=== PATIENT | female | born 1980 | race Caucasian/White ===

== ENCOUNTER → 2023-10-29 | Outpatient (CLI) | payer OTHER ==
[2023-10-29 20:44] LABS: Bacterial Vaginosis PCR Negative (NEGATIVE); Candida Group, PCR NOT DETECTED (NOT DETECT); Candida glabrata-krusei, PCR NOT DETECTED (NOT DETECT)
[2023-10-31 13:29] LABS: APTIMA MEDIA TYPE Unisex Swab; C. TRACHOMATIS BY TMA Negative (Negative); N. GONORRHOEAE BY TMA Negative (Negative); SPECIMEN SOURCE Vaginal
== END | disposition home or self-care (01) ==
LOC: LAB 13:38 → LAB SHORT 13:38
PROVIDERS: Advanced Practice Midwife
DX: Z11.3 Encounter for screening for infections with a predominantly sexual mode of transmission (principal); N39.0 Urinary tract infection, site not specified; N76.0 Acute vaginitis
CPT/HCPCS: 87086; 87481; 87491; 87591; 87661; 87801

== ENCOUNTER 2024-09-13 04:19 | Observation (INO) | payer OTHER ==
[2024-09-13] VITALS (14 sets, daily range): BP systolic 111–130; BP diastolic 65–83
[~2024-09-13] VITALS: Ht 167.6 cm; Wt 82.0 kg
[2024-09-13 08:57] LABS: BASOPHILS ABSOLUTE AUTO 0.04 K/mm3 (0.00-0.23); BASOPHILS PERCENT AUTO 1 % (0-2); EOSINOPHILS ABSOLUTE AUTO 0.07 K/mm3 (0.00-0.68); EOSINOPHILS PERCENT AUTO 1 % (0-6); Hematocrit 39.6 % (33.0-51.0); Hemoglobin 13.3 g/dL (11.5-16.0); IMMATURE GRAN ABSOLUTE AUTO 0.02 K/mm3 (0.00-0.10); IMMATURE GRAN PERCENT AUTO 0 % (0-1); LYMPHOCYTES ABSOLUTE AUTO 2.52 K/mm3 (0.84-5.20); LYMPHOCYTES PERCENT AUTO 28 % (21-46); MONOCYTES ABSOLUTE AUTO 0.42 K/mm3 (0.16-1.47); MONOCYTES PERCENT AUTO 5 % (4-13); Mean Corpuscular HGB 31.7 pg (26.0-34.0); Mean Corpuscular HGB Conc 33.6 g/dL (31.5-36.5); Mean Corpuscular Volume 94 fL (80-100); Mean Platelet Volume 9.4 fL (9.1-12.4); NEUTROPHILS ABSOLUTE AUTO 5.79 K/mm3 (1.96-9.15); NEUTROPHILS PERCENT AUTO 65 % (41-73); Platelet Count 357 K/mm3 (150-400); RDW Coefficient Variation 12.3 % (11.7-14.2); RDW Standard Deviation 42.5 fL (35.1-46.3); White Blood Cell Count 8.86 K/mm3 (4.00-11.30)
[2024-09-13 09:15] LABS: Source, Urine Clean Catch
[2024-09-13 09:23] LABS: Albumin, Blood 3.5 g/dL (3.4-5.0); Albumin/Globulin Ratio 0.8 (0.8-1.8); Bilirubin, Total 0.2 mg/dL (0.1-1.0); Bun/Creatinine Ratio 22.8 (12.0-20.0); Creatinine, Blood 0.57 mg/dL (0.40-1.00); Globulin, Blood 4.6 g/dL (2.2-4.0); Potassium, Blood 4.6 mmol/L (3.5-5.5); Total Protein, Blood 8.1 g/dL (6.4-8.2)
[2024-09-13 09:31] LABS: Appearance, Urine Clear (Clear); Bilirubin, Urine Neg (Neg); Blood, Urine Neg (Neg); Color, Urine Yellow (P-Yellow); Glucose Qualitative, Urine Neg (Neg); Ketones, Urine Neg (Neg); Leukocyte Esterase, Urine Neg (Neg); Nitrite, Urine Neg (Neg); Protein, Urine Neg (Neg); Urobilinogen, Urine NORM (Normal)
[2024-09-13] MEDS ORDERED: FentaNYL Citrate 50 MCG/ML 2 ML Injection IV ONE (11:35)
[2024-09-13] MEDS ORDERED: Ketorolac Tromethamine 30mg Vial IV ONE (11:40)
[2024-09-13] MEDS ORDERED: MetroNIDAZOLE 500MG/NS 100 ml 100 ML IV ONE (11:50)
[2024-09-13] MEDS ORDERED: Ciprofloxacin 400MG/D5 200ML 200 ML IV ONE (11:50)
[2024-09-13] MEDS ORDERED: HYDROmorphone HCl/Pf 1MG SYR IV PRN (12:15)
[2024-09-13] MEDS ORDERED: FLU VACC TS2024-25(6MOS UP)/PF 45 MCG/0.5 ML SYRINGE IM SCH (12:15)
[2024-09-13] MEDS ORDERED: Metoclopramide HCl 5MG / ML 2ML Vial IV PRN (12:20)
[2024-09-13] MEDS ORDERED: Lactated Ringer's 1,000 ML IV SCH (12:20)
[2024-09-13] MEDS ORDERED: OxyCODONE HCL 5 MG TAB PO PRN (12:20)
[2024-09-13] MEDS ORDERED: Ondansetron HCl 2 MG / ML 2ML Vial IV PRN (12:20)
[2024-09-13] MEDS ORDERED: Ondansetron HCl 2 MG / ML 2ML Vial ONE (12:50)
[2024-09-13] MEDS ORDERED: Rocuronium Bromide 10 MG/ML 5ML Injection IV ONE (12:50)
[2024-09-13] MEDS ORDERED: propofoL 20 ML IV ONE (12:50)
[2024-09-13] MEDS ORDERED: Dexamethasone Sod Phos 10 MG/ML 1ML VIAL ONE (12:50)
[2024-09-13] MEDS ORDERED: FentaNYL Citrate 50 MCG/ML 2 ML Injection ONE ×2 (12:51→15:19)
[2024-09-13] MEDS ORDERED: Bupivacaine 0.5% HCl 5 MG/ML 30MLVIAL ONE (13:09)
--- NOTE | 2024-09-13 14:04 | NUR ---
09/13/24 1404 Gabby Chino PT ON SCHEDULED ANTIBIOTICS
[2024-09-13] MEDS ORDERED: Sugammadex Sodium 200 MG/2ML SDV (100 MG/ML) ONE (14:05)
[2024-09-13] MEDS ORDERED: SuccINYLCHOLINE Chloride 100 MG/5 ML 5MLSYR ONE (14:40)
[2024-09-13] MEDS ORDERED: DiphenhydrAMINE HCl 50 MG/ML 1ML Vial ONE (14:40)
--- NOTE | 2024-09-13 16:19 | NUR ---
PT ARRIVED TO THE ROOM AT 1550. SHE IS ALERT/ORIENTED. PT RATES PAIN AT 3/10. PT PROVIDED WITH AND EDUCATED TO USE HER CALL LIGHT.
[2024-09-13] MEDS ORDERED: LEVSOD75 PO (17:13)
--- NOTE | 2024-09-13 17:50 | NUR ---
SPOKE WITH DR. CARDOSO REGARDING PT'S HX OF PENICILLIN ALLERGY. PER DR. CARDOSO AND THE PT, SHE HAD A RASH WHEN TAKING AMOXICILLIN IN THE PAST. PRN BENADRYL ORDER REQUESTED, DR. CARDOSO DECLINED AND STATED THAT PT ALREADY HAD BENADRYL POST-OP AND OK TO ADMINISTER ZOSYN.
[2024-09-13] MEDS ORDERED: Acetaminophen 325 MG TABLET PO PRN (17:55)
[2024-09-13] MEDS ORDERED: Piperacillin/Tazobactam Sod 3.375 GM in NS 100 ML IV SCH (18:00)
--- NOTE | 2024-09-13 20:00 | NUR ---
SHIFT SUMMARY PT IS POD#[address] CARDOSO. PAIN MANAGED WITH PO PAIN MEDICATION. PT HAS AMBULATED. SHE HAS BEEN ABLE TO TOLERATE PO AND VOID. VSS. BEDSIDE REPORT GIVEN TO GIANNA WHITE.
[2024-09-14 00:18] VITALS: BP 105/59
[2024-09-14 04:42] VITALS: BP 102/63
--- NOTE | 2024-09-14 06:16 | NUR ---
SHIFT SUMMARY AOX4. VSS. POD 1-LAP APPY. x4 LAP SITES TO ABD W/SKIN ADHESIVE, NO DRAINAGE NOTED, OPEN TO AIR. DENIES N/V. REPORTS 3-04/18 ABD DISCOMFORT, MEDICATED 1x W/5MG OXYCODONE. TOLERATING DIET. DENIES PASSING FLATUS. IND IN RM. CONTINENT OF URINE. AMBULATED HALLS. CALL LIGHT IN REACH, PENDING DC HOME TODAY.
[2024-09-14] MEDS ORDERED: TRAM50 PO (07:27)
[2024-09-14 08:28] VITALS: BP 115/73
--- NOTE | 2024-09-14 08:50 | NUR ---
DISCHARGE NOTE THIS RN ASSUMED CARE AT APPROX 0715. PATIENT ALERT AND ORIENTED X4. INDEPENDENT IN ROOM. COMMUNICATING NEEDS EFFECTIVELY. VSS. POD 1 LAP APPY - X4 LAP SITES C/D/I WITH WOUND GLUE. TOLERATING REGULAR DIET - DENIES N/V. DENIES FLATULENCE. VOIDING. PAIN MANAGED WITH PRESCRIBED MEDICATIONS. MD CARDOSO AT BEDSIDE ROUNDING THIS MORNING - DC HOME ORDERED. IV REMOVED. DC EDUCATION PROVIDED - PATIENT STATES UNDERSTANDING. PATIENT TRANSFERRED TO PERSONAL VEHICLE VIA WHEELCHAIR AT APPROX 0850. PERSONAL BELONGINGS WITH PATIENT.
--- NOTE | 2024-09-14 08:51 | NUR ---
SCOTT PT STATES SHE RECIEVED ALL DC INSTRUCTIONS AND HARD RX FOR PAIN MEDICATION, DENIES ANY FURTHER QUESTIONS. WC TO PRIVATE VEHICLE BY THIS RN.
== END 2024-09-14 08:48 | disposition home or self-care (01) ==
LOC: ER 04:19 → SURS 04:20 → ER 12:56 → SURS 15:53
PROVIDERS: Student in an Organized Health Care Education/Training Program; ADMIT Surgery
PROC: 0DTJ4ZZ Resection of Appendix, Percutaneous Endoscopic Approach (ICD-10-PCS; principal; 2024-09-13 13:00)
PROC: 3E0T3BZ Introduction of Anesthetic Agent into Peripheral Nerves and Plexi, Percutaneous Approach (ICD-10-PCS; principal; 2024-09-13 13:00)
DX: K35.80 Unspecified acute appendicitis (principal); E06.3 Autoimmune thyroiditis; E66.9 Obesity, unspecified; Z68.29 Body mass index [BMI] 29.0-29.9, adult; Z79.890 Hormone replacement therapy; Z88.0 Allergy status to penicillin; Z88.5 Allergy status to narcotic agent
CPT/HCPCS: 74177; 80053; 81003; 81025; 83690; 85025; 88304; 96374; 96375; 99285-25; A9270; G0378; J0330; J0744; J1100; J1200; J1885; J2405; J2543; J2704; J3010; Q9967

== ENCOUNTER 2024-09-29 18:52 | Emergency (ER) | payer OTHER ==
[~2024-09-29] VITALS: Ht 167.6 cm; Wt 81.7 kg
[~2024-09-29 18:52] MED LIST: LEVSOD75 PO; TRAM50 PO
[2024-09-29 19:29] LABS: BASOPHILS ABSOLUTE AUTO 0.08 K/mm3 (0.00-0.23); BASOPHILS PERCENT AUTO 1 % (0-2); EOSINOPHILS ABSOLUTE AUTO 0.14 K/mm3 (0.00-0.68); EOSINOPHILS PERCENT AUTO 2 % (0-6); Hematocrit 34.4 % (33.0-51.0); Hemoglobin 11.6 g/dL (11.5-16.0); IMMATURE GRAN ABSOLUTE AUTO 0.01 K/mm3 (0.00-0.10); IMMATURE GRAN PERCENT AUTO 0 % (0-1); LYMPHOCYTES ABSOLUTE AUTO 2.56 K/mm3 (0.84-5.20); LYMPHOCYTES PERCENT AUTO 38 % (21-46); MONOCYTES ABSOLUTE AUTO 0.37 K/mm3 (0.16-1.47); MONOCYTES PERCENT AUTO 6 % (4-13); Mean Corpuscular HGB Conc 33.7 g/dL (31.5-36.5); Mean Corpuscular Volume 92 fL (80-100); Mean Platelet Volume 9.7 fL (9.1-12.4); NEUTROPHILS ABSOLUTE AUTO 3.53 K/mm3 (1.96-9.15); NEUTROPHILS PERCENT AUTO 53 % (41-73); Platelet Count 376 K/mm3 (150-400); RDW Coefficient Variation 13.3 % (11.7-14.2); Red Blood Cell Count 3.74 M/mm3 (3.80-5.20); White Blood Cell Count 6.69 K/mm3 (4.00-11.30)
[2024-09-29 20:05] LABS: Albumin, Blood 3.8 g/dL (3.4-5.0); Albumin/Globulin Ratio 1.1 (0.8-1.8); Bilirubin, Total 0.2 mg/dL (0.1-1.0); Bun/Creatinine Ratio 20.8 (12.0-20.0); Calcium, Blood 8.7 mg/dL (8.5-10.1); Creatinine, Blood 0.53 mg/dL (0.40-1.00); Globulin, Blood 3.6 g/dL (2.2-4.0); Potassium, Blood 3.4 mmol/L (3.5-5.5); Total Protein, Blood 7.4 g/dL (6.4-8.2)
[2024-09-29 22:20] LABS: Source, Urine Clean Catch
[2024-09-29 22:40] LABS: Bilirubin, Urine Neg (Neg); Blood, Urine 1+ (Neg); Glucose Qualitative, Urine Neg (Neg); Ketones, Urine Neg (Neg); Leukocyte Esterase, Urine Neg (Neg); Nitrite, Urine Neg (Neg); Protein, Urine Neg (Neg); Urobilinogen, Urine NORM (Normal)
[2024-09-29 22:56] LABS: Appearance, Urine Clear (Clear); Color, Urine Yellow (P-Yellow)
[2024-09-29 22:57] LABS: Bacteria Rare /hpf; Red Blood Cells, Urine 0-2 /hpf (0-2); Squamous Epithelial Cells Few /hpf (Few); White Blood Cells, Urine Not Seen /hpf (0-5)
[2024-09-29] MEDS ORDERED: Ketorolac Tromethamine 30mg Vial IV ONE (23:45)
[2024-09-29] MEDS ORDERED: NS 1,000 ML IV SCH (23:45)
== END 2024-09-30 02:25 | disposition home or self-care (01) ==
LOC: ER 18:52
PROVIDERS: Emergency Medicine; Student in an Organized Health Care Education/Training Program
DX: G89.18 Other acute postprocedural pain (principal); E86.0 Dehydration; R31.9 Hematuria, unspecified; Z88.0 Allergy status to penicillin; Z88.6 Allergy status to analgesic agent
CPT/HCPCS: 74177; 80053; 81001; 81025; 83690; 85025; 96374-59; 99284-25; J1885; J7030; Q9967

== ENCOUNTER → 2024-11-12 | Outpatient (CLI) | payer OTHER | LOC: LAB 17:50 → LAB SHORT 17:50 | DX: R30.0 Dysuria (principal) | CPT/HCPCS: 87086 ==

== ENCOUNTER → 2025-06-28 | Outpatient (CLI) | payer OTHER | LOC: LAB SHORT 10:38 → LAB 10:38 | PROVIDERS: Advanced Practice Midwife | DX: Z01.419 Encounter for gynecological examination (general) (routine) without abnormal findings (principal) | CPT/HCPCS: 87624; G0145 ==

== ENCOUNTER → 2025-07-16 | Outpatient (CLI) | payer OTHER ==
[2025-07-16 15:33] LABS: Chlamydia Trachomatis Vaginal NOT DETECTED (NOT DETECT); Neisseria Gonorrhoea Vaginal NOT DETECTED (NOT DETECT)
== END | disposition home or self-care (01) ==
LOC: LAB 13:05 → LAB SHORT 13:05
PROVIDERS: Advanced Practice Midwife
DX: Z11.3 Encounter for screening for infections with a predominantly sexual mode of transmission (principal); R30.0 Dysuria
CPT/HCPCS: 87086; 87491; 87591